=== PATIENT | male | born 1960 | race Caucasian/White ===

== ENCOUNTER 2020-07-27 08:27 | Day surgery (SDC) | payer BC ==
[~2020-07-27] VITALS: Ht 177.8 cm; Wt 89.9 kg
[~2020-07-27 08:27] MED LIST: FISH1000 PO; FLUC100; IBUP400 PO; MULVITMIND PO
--- NOTE | 2020-07-27 09:59 | NUR ---
07/27/20 0959 Yanira Newsome USING SCOPE [id number]
== END 2020-07-27 10:32 | disposition home or self-care (01) ==
LOC: ORSCSDS 08:27
PROVIDERS: Internal Medicine Gastroenterology
PROC: 0DJD8ZZ Inspection of Lower Intestinal Tract, Via Natural or Artificial Opening Endoscopic (ICD-10-PCS; principal; 2020-07-27 09:45)
DX: Z12.11 Encounter for screening for malignant neoplasm of colon (principal); Z80.0 Family history of malignant neoplasm of digestive organs; K64.8 Other hemorrhoids; Z87.891 Personal history of nicotine dependence; Z79.899 Other long term (current) drug therapy
CPT/HCPCS: J2704; J7120

== ENCOUNTER 2021-07-13 06:48 | Day surgery (SDC) | payer OTHER, BC ==
[~2021-07-13] VITALS: Ht 177.8 cm; Wt 90.1 kg
--- NOTE | 2021-07-13 08:36 | NUR ---
07/13/21 0836 Maritza Johnson 1 MG EPI ADDED TO EACH OF THE FIRST THREE BAGS OF LR FOR IRRIGATION AT [facility]IN [facility].
--- NOTE | 2021-07-13 09:20 | NUR ---
07/13/21 0920 WILMA WOODS Pt up in chair, conversing with family, tolerating snacks and fluids well. Pt denies any pain at this time. Will continue to monitor.
== END 2021-07-13 10:16 | disposition home or self-care (01) ==
LOC: ORSCSDS 06:48
PROVIDERS: Orthopaedic Surgery
PROC: 0SBD4ZZ Excision of Left Knee Joint, Percutaneous Endoscopic Approach (ICD-10-PCS; principal; 2021-07-13 08:00)
DX: S83.242A Other tear of medial meniscus, current injury, left knee, initial encounter (principal); S83.282A Other tear of lateral meniscus, current injury, left knee, initial encounter; M94.262 Chondromalacia, left knee; X58.XXXA Exposure to other specified factors, initial encounter
CPT/HCPCS: A9270; J0171; J2250; J2370; J2704; J2795; J3010